=== PATIENT | male | born 1980 | race Two or more races ===

== ENCOUNTER 2023-10-05 05:10 | Day surgery (SDC) | payer OTHER ==
[2023-09-29 08:28] LABS: PH,URINE 5.5 (5.0-8.0); URINE APPEARANCE Clear; URINE BILIRRUBIN Negative (NEGATIVE); URINE BLOOD Negative; URINE COLOR Yellow; URINE GLUCOSE Negative (NEGATIVE); URINE LEUKOCYTE Negative; URINE NITRATE Negative; URINE PROTEIN Negative (NEGATIVE); URINE UROBILINOGEN 0.2 E.U./dl
[2023-09-29 08:31] LABS: URINE BACTERIA 6.2 uL (0.0-1933); URINE RBC 5.6 uL (0.0-20.8); URINE WBC 6.3 uL (0.0-23.2)
[2023-09-29 08:33] LABS: URINE EPITHELIAL CELLS 1.3 uL (0.0-38.8)
[2023-09-29 08:44] LABS: HEMOGLOBIN 17.1 g/dL (13-16.00); MEAN CELL VOLUME 87.7 fL (80.0-100.00); MEAN CORPUSCULAR HEMOGLOBIN 29.5 pg (27.00-32.0); MEAN CORPUSCULAR HGB CONC 33.6 g/dl (32.0-36.0); PLATELET COUNT 201 K/uL (150-450); RED BLOOD COUNT 5.81 M/uL (4.00-6.00); RED CELL DISTRIBUTION WIDTH 13.6 % (11.5-14.5)
[2023-09-29 09:03] LABS: INR 0.95; PARTIAL THROMBOPLASTIN TIME 29.9 SECONDS (22.0-34.0)
[2023-09-29 09:26] LABS: ALBUMIN 3.9 gm/dL (3.4-5.0); BILIRUBIN TOTAL 0.59 mg/dL (0.3-1.2); CALCIUM 9.4 mg/dL (8.5-10.1); CREATININE SERUM 0.94 mg/dL (0.70-1.30); GFR 88.01; GLOBULINA 3.2 G/DL (2.4-3.5); POTASSIUM 3.96 mEq/L (3.5-5.1); TOTAL PROTEIN 7.1 gm/dL (6.4-8.2)
== END 2023-10-05 15:30 | disposition home or self-care (01) ==
LOC: CIR.AMB 05:10
PROVIDERS: ATTEND Otolaryngology
DX: J34.3 Hypertrophy of nasal turbinates (principal); Z20.822 Contact with and (suspected) exposure to COVID-19

== ENCOUNTER 2024-08-06 13:03 | Emergency (ER) | payer OTHER ==
[~2024-08-06] VITALS: Ht 180.3 cm; Wt 117.9 kg
[2024-08-06] MEDS ORDERED: TRAMADOL HCL 50 MG TABLET PO STA (16:17)
[2024-08-06 18:06] LABS: HEMATOCRIT 46.5 % (39.0-48.0); HEMOGLOBIN 15.2 g/dL (13-16.00); MEAN CELL VOLUME 88.3 fL (80.0-100.00); MEAN CORPUSCULAR HEMOGLOBIN 28.9 pg (27.00-32.0); MEAN CORPUSCULAR HGB CONC 32.8 g/dl (32.0-36.0); PLATELET COUNT 194 K/uL (150-450); RED BLOOD COUNT 5.26 M/uL (4.00-6.00)
[2024-08-06 18:52] LABS: CREATININE SERUM 1.04 mg/dL (0.70-1.30); GFR 78.32; POTASSIUM 3.96 mEq/L (3.5-5.1)
[2024-08-06 18:52] LABS: PH,URINE 5.5 (5.0-8.0); URINE APPEARANCE Clear; URINE BILIRRUBIN Small (NEGATIVE); URINE BLOOD Negative; URINE COLOR Orange; URINE GLUCOSE Negative (NEGATIVE); URINE KETONE Trace (NEGATIVE); URINE LEUKOCYTE Small; URINE NITRATE Negative; URINE PROTEIN Trace (NEGATIVE)
[2024-08-06 18:55] LABS: URINE BACTERIA 283.4 uL (0.0-1933); URINE EPITHELIAL CELLS 8.9 uL (0.0-38.8); URINE RBC 8.5 uL (0.0-20.8); URINE WBC 367.8 uL (0.0-23.2)
== END 2024-08-06 19:20 | disposition home or self-care (01) ==
LOC: ER 13:05
PROVIDERS: General Practice
DX: N50.812 Left testicular pain (principal); Z88.0 Allergy status to penicillin; Z88.6 Allergy status to analgesic agent; N43.2 Other hydrocele; N45.1 Epididymitis